=== PATIENT | female | born 1990 | race African-American/Black ===

== ENCOUNTER 2016-05-03 06:38 | Emergency (ER) | payer OTHER ==
[2016-05-03] MEDS ORDERED: AMOXICILLIN 500 MG CAP As Ordered ONE (07:11)
[2016-05-03] MEDS ORDERED: predniSONE 20 MG TAB As Ordered ONE (07:12)
--- NOTE | 2016-05-03 07:23 | EDDOCDS ---
Nurse's Notes [facility] Name: Dasia Soler Age: 26 yrs Sex: Female : 1990 Arrival Date: 05/03/2016 Time: 06:38 Bed Triage 1 Private MD: Diagnosis: Streptococcal pharyngitis Presentation: 05/03 06:47 Presenting complaint: Patient states: sore throat and right ear ache. Reports pain with nn1 swallowing. States symptoms started , reports fever at that time. Reports intermittent fever since. Denies medication this AM. Risk factors: Stridor is not present. Drooling is not present. Shortness of breath is not present. Cellulitis is not present. Adult Sepsis Screening: The patient does not have new or worsening altered mentation. Patient's respiratory rate is less than 22. Systolic blood pressure is greater than 100. Patient has a qSOFA score of 0- Negative Sepsis Screen. Suicide/Homicide risk assessment- the patient denies having any suicidal and/or homicidal ideations and does not present with any other emotional, behavioral or mental health complaints. Status: The patient is a dependent. Transition of care: patient was not received from another setting of care. 06:47 Acuity: HAYLIE Level 4 nn1 06:47 Method Of Arrival: Walkin/Carried/Asstd nn1 Triage Assessment: 06:52 General: Appears uncomfortable. Pain: Location: throat Pain currently is 9 out of 10 on nn1 a pain scale. HIV screening NA for this visit Offered previously. The patient is triaged at the bedside. See Assessment in Nurses Notes section of ED record. EENT: Throat is reddened has enlarged tonsils on right with gag reflex present. Respiratory: Airway is patent Respiratory effort is even, unlabored, Respiratory pattern is regular, symmetrical. Derm: Skin is pink, warm & dry. 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 none - PMHx: none; - PSHx: Laparoscopy; - Social history: Smoking status: Patient states was never smoker of tobacco. No barriers to communication noted, The patient speaks fluent Maori, Speaks appropriately for age. - : The pt / caregiver states he / she is not on anticoagulants. Home medication list is obtained from the patient. - Exposure Risk Screening:: None identified. Screenin:18 Screening information is obtained from the patient. Fall risk: No risks identified. jjr Assistance ADL's: requires no assistance with activities of daily living. Abuse/DV Screen: The patient / caregiver reports he/she is: not in a situation that causes fear, pain or injury. Nutritional screening: No deficits noted. Advance Directives: There is no active DNR order. home support is adequate. Assessment: 07:16 General: Appears in no apparent distress, well nourished, well groomed, Behavior is jjr appropriate for age. General: clearing own secretions without difficulty, took pill form of prescriptions without difficulty but requested liquid form for duration of treatment. EENT: Reports pain when swallowing. Respiratory: Airway is patent Respiratory effort is even, unlabored, Respiratory pattern is regular. Derm: No deficits noted. Vital Signs: 06:50 BP 121 / 77; Pulse 98; Resp 18; Temp 99.9(O); Pulse Ox 98% on R/A; Weight 74.84 kg; nn1 Height 5 ft. 1 in. (154.94 cm); Pain 9/10; 06:50 Body Mass Index 31.18 (74.84 kg, 154.94 cm) nn1 Vitals: 06:50 Log In Time: May 03, 2016 at 06:38. nn1 07:04 Strep Screen is obtained and tested: Positive. nn1 ED Course: 06:39 Patient visited by Zohaib Quintana Reg. pm4 06:39 Patient moved to Waiting pm4 06:49 Triage Initiated nn1 06:53 Patient moved to Triage 1 nn1 06:55 Clinton Sotelo PA-C is PHCP. cc10 06:55 Eloy Mendoza DO is Attending Physician. cc10 07:08 TRACE Sorto is Referral Physician. cc10 07:13 Patient visited by Clinton Sotelo PA-C. cc10 07:13 Patient visited by Clinton Sotelo PA-C. cc10 07:19 No IV's were initiated during this patient's visit. No procedures done that require jjr assistance. 07:22 The patient / caregiver is instructed regarding the plan of care and ED course. jjr Administered Medications: 07:16 Drug: predniSONE 20 mg [prednisone 20 mg tablet (1 tabs)] Route: PO; jjr 07:16 Drug: Amoxicillin 500 mg [amoxicillin 500 mg capsule (1 caps)] Route: PO; jjr Order Results: There are currently no results for this order. Outcome: 07:08 Discharge ordered by Provider. cc10 07:21 Discharge Assessment: patient administered narcotics - no. The following High Risk jjr Discharge criteria are identified: None. Discharged to home ambulatory, with significant other. Condition: stable. Discharge instructions given to patient, Instructed on discharge instructions, follow up and referral plans. medication usage, Demonstrated understanding of instructions, medications, Prescriptions given X 2. No special radiology studies were completed. Property sent home with patient. 07:22 Patient left the ED. jjr Signatures: Lisa Mcnair, RN RN Clinton Maier, PA-C PA-C cc10 Leda El RN RN nn1 Zohaib Quintana, Reg Reg pm4 MTDD
--- NOTE | 2016-05-03 07:23 | EDDOCDS ---
Physician Documentation [facility] Name: Dasia Soler Age: 26 yrs Sex: Female : 1990 Arrival Date: 05/03/2016 Time: 06:38 Bed Triage 1 Private MD: Disposition: 05/03/16 07:08 Discharged to Home/Self Care. Impression: Streptococcal pharyngitis. - Condition is Stable. - Discharge Instructions: Sore Throat. - Prescriptions for Amoxicillin 400 mg/5 mL Oral Suspension for Reconstitution - take 10.9 milliliter by ORAL route every 12 hours for 10 days MAX dose = 1750mg/day; 220 milliliter. prednisolone 15 mg/5 mL Oral Solution - take 10 milliliter by ORAL route once daily for 3 days Take with food.; 30 milliliter. - Medication Reconciliation, Local Pharmacy Hours form. - Follow up: TRACE Sorto; When: Call to arrange an appointment; Reason: Wound/Symptom Recheck, Recheck today's complaints, Worsening of conditions, Continuance of care. - Problem is an ongoing problem. - Symptoms are unchanged. - Notes: May take tylenol as needed for pain. Historical: - Allergies: No known drug Allergies; - Home Meds: 1. none - PMHx: none; - PSHx: Laparoscopy; - Social history: Smoking status: Patient states was never smoker of tobacco. No barriers to communication noted, The patient speaks fluent Upper Sorbian, Speaks appropriately for age. - : The pt / caregiver states he / she is not on anticoagulants. Home medication list is obtained from the patient. - Exposure Risk Screening:: None identified. 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 1 in. (154.94 cm); Pain 9/10; 06:50 Body Mass Index 31.18 (74.84 kg, 154.94 cm) nn1 MDM: 06:56 Strep Screen, Nursing ordered. cc10 07:08 predniSONE 20 mg PO once; administer with food or milk ordered. cc10 07:08 Amoxicillin 500 mg PO once ordered. cc10 Administered Medications: 07:16 Drug: predniSONE 20 mg [prednisone 20 mg tablet (1 tabs)] Route: PO; arben 07:16 Drug: Amoxicillin 500 mg [amoxicillin 500 mg capsule (1 caps)] Route: PO; jjr Signatures: Lisa Mcnair RN RN jjr Clinton Sotelo PA-C PA-C cc10 Leda El RN RN nn1 MTDD
--- NOTE | 2016-05-05 08:23 | EDDOCDS ---
Physician Documentation [facility] Name: Dasia Soler Age: 26 yrs Sex: Female : 1990 Arrival Date: 05/03/2016 Time: 06:38 Bed Triage 1 Private MD: Disposition: 05/03/16 07:08 Discharged to Home/Self Care. Impression: Streptococcal pharyngitis. - Condition is Stable. - Discharge Instructions: Sore Throat. - Prescriptions for Amoxicillin 400 mg/5 mL Oral Suspension for Reconstitution - take 10.9 milliliter by ORAL route every 12 hours for 10 days MAX dose = 1750mg/day; 220 milliliter. prednisolone 15 mg/5 mL Oral Solution - take 10 milliliter by ORAL route once daily for 3 days Take with food.; 30 milliliter. - Medication Reconciliation, Local Pharmacy Hours form. - Follow up: TRACE Sorto; When: Call to arrange an appointment; Reason: Wound/Symptom Recheck, Recheck today's complaints, Worsening of conditions, Continuance of care. - Problem is an ongoing problem. - Symptoms are unchanged. - Notes: May take tylenol as needed for pain. Historical: - Allergies: No known drug Allergies; - Home Meds: 1. none - PMHx: none; - PSHx: Laparoscopy; - Social history: Smoking status: Patient states was never smoker of tobacco. No barriers to communication noted, The patient speaks fluent Spanish, Speaks appropriately for age. - : The pt / caregiver states he / she is not on anticoagulants. Home medication list is obtained from the patient. - Exposure Risk Screening:: None identified. 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 1 in. (154.94 cm); Pain 9/10; 06:50 Body Mass Index 31.18 (74.84 kg, 154.94 cm) nn1 MDM: 06:56 Strep Screen, Nursing ordered. cc10 07:08 predniSONE 20 mg PO once; administer with food or milk ordered. cc10 07:08 Amoxicillin 500 mg PO once ordered. cc10 07:22 Financial registration complete. hs2 07:24 [facility] Payment Agreement was scanned into [employer] and attached to record. hs2 08:42 T-Sheet-- Draft Copy was scanned into [employer] and attached to record. se Administered Medications: 07:16 Drug: predniSONE 20 mg [prednisone 20 mg tablet (1 tabs)] Route: PO; jjr 07:16 Drug: Amoxicillin 500 mg [amoxicillin 500 mg capsule (1 caps)] Route: PO; jjr Signatures: Lisa Mcnair, RN RN jjr Clinton Sotelo, PA-C PA-C cc10 Leda El RN RN nn1 Betzy Reed, Reg Reg hs2 Chelsea Winkler [facility] The chart was reviewed and I authenticate all verbal orders and agree with the evaluation and treatment provided.Attachments: 07:24 [facility] Payment Agreement hs2 08:42 T-Sheet-- Draft Copy [facility] Chart Complete MTDD
--- NOTE | 2016-05-05 08:23 | EDDOCDS ---
Physician Documentation [facility] Name: Dasia Soler Age: 26 yrs Sex: Female : 1990 Arrival Date: 05/03/2016 Time: 06:38 Bed Triage 1 Private MD: Disposition: 05/03/16 07:08 Discharged to Home/Self Care. Impression: Streptococcal pharyngitis. - Condition is Stable. - Discharge Instructions: Sore Throat. - Prescriptions for Amoxicillin 400 mg/5 mL Oral Suspension for Reconstitution - take 10.9 milliliter by ORAL route every 12 hours for 10 days MAX dose = 1750mg/day; 220 milliliter. prednisolone 15 mg/5 mL Oral Solution - take 10 milliliter by ORAL route once daily for 3 days Take with food.; 30 milliliter. - Medication Reconciliation, Local Pharmacy Hours form. - Follow up: TRACE Sorto; When: Call to arrange an appointment; Reason: Wound/Symptom Recheck, Recheck today's complaints, Worsening of conditions, Continuance of care. - Problem is an ongoing problem. - Symptoms are unchanged. - Notes: May take tylenol as needed for pain. Historical: - Allergies: No known drug Allergies; - Home Meds: 1. none - PMHx: none; - PSHx: Laparoscopy; - Social history: Smoking status: Patient states was never smoker of tobacco. No barriers to communication noted, The patient speaks fluent Turkmen, Speaks appropriately for age. - : The pt / caregiver states he / she is not on anticoagulants. Home medication list is obtained from the patient. - Exposure Risk Screening:: None identified. 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 1 in. (154.94 cm); Pain 9/10; 06:50 Body Mass Index 31.18 (74.84 kg, 154.94 cm) nn1 MDM: 06:56 Strep Screen, Nursing ordered. cc10 07:08 predniSONE 20 mg PO once; administer with food or milk ordered. cc10 07:08 Amoxicillin 500 mg PO once ordered. cc10 07:22 Financial registration complete. hs2 07:24 [facility] Payment Agreement was scanned into [employer] and attached to record. hs2 08:42 T-Sheet-- Draft Copy was scanned into [employer] and attached to record. se Administered Medications: 07:16 Drug: predniSONE 20 mg [prednisone 20 mg tablet (1 tabs)] Route: PO; jjr 07:16 Drug: Amoxicillin 500 mg [amoxicillin 500 mg capsule (1 caps)] Route: PO; jjr Signatures: Lisa Mcnair, RN RN jjr Clinton Sotelo, PA-C PA-C cc10 Leda El RN RN nn1 Betzy Reed, Reg Reg hs2 Chelsea Winkler [facility] The chart was reviewed and I authenticate all verbal orders and agree with the evaluation and treatment provided.Attachments: 07:24 [facility] Payment Agreement hs2 08:42 T-Sheet-- Draft Copy [facility] Chart Complete MTDD
--- NOTE | 2016-05-05 08:23 | EDDOCDS ---
Nurse's Notes [facility] Name: Dasia Soler Age: 26 yrs Sex: Female : 1990 Arrival Date: 05/03/2016 Time: 06:38 Bed Triage 1 Private MD: Diagnosis: Streptococcal pharyngitis Presentation: 05/03 06:47 Presenting complaint: Patient states: sore throat and right ear ache. Reports pain with nn1 swallowing. States symptoms started , reports fever at that time. Reports intermittent fever since. Denies medication this AM. Risk factors: Stridor is not present. Drooling is not present. Shortness of breath is not present. Cellulitis is not present. Adult Sepsis Screening: The patient does not have new or worsening altered mentation. Patient's respiratory rate is less than 22. Systolic blood pressure is greater than 100. Patient has a qSOFA score of 0- Negative Sepsis Screen. Suicide/Homicide risk assessment- the patient denies having any suicidal and/or homicidal ideations and does not present with any other emotional, behavioral or mental health complaints. Status: The patient is a dependent. Transition of care: patient was not received from another setting of care. 06:47 Acuity: HAYLIE Level 4 nn1 06:47 Method Of Arrival: Walkin/Carried/Asstd nn1 Triage Assessment: 06:52 General: Appears uncomfortable. Pain: Location: throat Pain currently is 9 out of 10 on nn1 a pain scale. HIV screening NA for this visit Offered previously. The patient is triaged at the bedside. See Assessment in Nurses Notes section of ED record. EENT: Throat is reddened has enlarged tonsils on right with gag reflex present. Respiratory: Airway is patent Respiratory effort is even, unlabored, Respiratory pattern is regular, symmetrical. Derm: Skin is pink, warm & dry. 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 none - PMHx: none; - PSHx: Laparoscopy; - Social history: Smoking status: Patient states was never smoker of tobacco. No barriers to communication noted, The patient speaks fluent [place], Speaks appropriately for age. - : The pt / caregiver states he / she is not on anticoagulants. Home medication list is obtained from the patient. - Exposure Risk Screening:: None identified. Screenin:18 Screening information is obtained from the patient. Fall risk: No risks identified. jjr Assistance ADL's: requires no assistance with activities of daily living. Abuse/DV Screen: The patient / caregiver reports he/she is: not in a situation that causes fear, pain or injury. Nutritional screening: No deficits noted. Advance Directives: There is no active DNR order. home support is adequate. Assessment: 07:16 General: Appears in no apparent distress, well nourished, well groomed, Behavior is jjr appropriate for age. General: clearing own secretions without difficulty, took pill form of prescriptions without difficulty but requested liquid form for duration of treatment. EENT: Reports pain when swallowing. Respiratory: Airway is patent Respiratory effort is even, unlabored, Respiratory pattern is regular. Derm: No deficits noted. Vital Signs: 06:50 BP 121 / 77; Pulse 98; Resp 18; Temp 99.9(O); Pulse Ox 98% on R/A; Weight 74.84 kg; nn1 Height 5 ft. 1 in. (154.94 cm); Pain 9/10; 06:50 Body Mass Index 31.18 (74.84 kg, 154.94 cm) nn1 Vitals: 06:50 Log In Time: May 03, 2016 at 06:38. nn1 07:04 Strep Screen is obtained and tested: Positive. nn1 ED Course: 06:39 Patient visited by Zohaib Quintana Reg. pm4 06:39 Patient moved to Waiting pm4 06:49 Triage Initiated nn1 06:53 Patient moved to Triage 1 nn1 06:55 Clinton Sotelo PA-C is PHCP. cc10 06:55 Eloy Mendoza DO is Attending Physician. cc10 07:08 TRACE Sorto is Referral Physician. cc10 07:13 Patient visited by Clinton Sotelo PA-C. cc10 07:13 Patient visited by Clinton Sotelo PA-C. cc10 07:19 No IV's were initiated during this patient's visit. No procedures done that require jjr assistance. 07:22 The patient / caregiver is instructed regarding the plan of care and ED course. jjr 07:24 [facility] Payment Agreement was scanned into [employer] and attached to record. hs2 08:42 T-Sheet-- Draft Copy was scanned into [employer] and attached to record. [facility] Administered Medications: 07:16 Drug: predniSONE 20 mg [prednisone 20 mg tablet (1 tabs)] Route: PO; jjr 07:16 Drug: Amoxicillin 500 mg [amoxicillin 500 mg capsule (1 caps)] Route: PO; jjr Order Results: There are currently no results for this order. Outcome: 07:08 Discharge ordered by Provider. cc10 07:21 Discharge Assessment: patient administered narcotics - no. The following High Risk jjr Discharge criteria are identified: None. Discharged to home ambulatory, with significant other. Condition: stable. Discharge instructions given to patient, Instructed on discharge instructions, follow up and referral plans. medication usage, Demonstrated understanding of instructions, medications, Prescriptions given X 2. No special radiology studies were completed. Property sent home with patient. 07:22 Patient left the ED. jjr Signatures: Lisa Mcnair RN RN jjr Clinton Sotelo, PATianaC PA-C cc10 Leda ElRN RN nn1 Betzy Reed, Reg Reg hs2 Chelsea Winkler Paul, Reg Reg pm4 Chart Complete MTDD
== END 2016-05-03 07:22 | disposition home or self-care (01) ==
LOC: M ED 06:38
DX: J02.0 Streptococcal pharyngitis (principal)

== ENCOUNTER 2016-09-05 19:27 | Emergency (ER) | payer OTHER ==
[~2016-09-05] VITALS: Ht 154.9 cm; Wt 77.1 kg
[2016-09-05] MEDS ORDERED: MAGIC MOUTHWASH SUSPENSION BTL SS ONE (21:00)
[2016-09-05 21:09] VITALS: BP 109/67
== END 2016-09-05 21:26 | disposition home or self-care (01) ==
LOC: M ED 20:29
DX: J02.9 Acute pharyngitis, unspecified (principal)

== ENCOUNTER → 2016-12-09 | Outpatient (REF) | payer OTHER | LOC: M SFHCLERA 18:13 | PROVIDERS: ATTEND Nurse Practitioner Family | DX: N89.8 Other specified noninflammatory disorders of vagina (principal); R10.9 Unspecified abdominal pain ==

== ENCOUNTER → 2017-03-11 | Outpatient (REF) | payer OTHER | LOC: M LAB REF 17:24 | PROVIDERS: ATTEND Physician Assistant Medical | DX: Z12.4 Encounter for screening for malignant neoplasm of cervix (principal) ==

== ENCOUNTER 2017-07-17 22:46 | Emergency (ER) | payer OTHER ==
[2017-07-17] MEDS: NS 1,000 ML IV (23:45)
[2017-07-18 00:43] LABS: BASO % 0.5 % (0.0-1.0); EOS # 0.1 10^3/uL (0.0-0.50); EOS % 1.8 % (0.0-3.0); HEMATOCRIT 35.8 % (36.0-47.0); HEMOGLOBIN 11.6 g/dl (12.0-15.5); IMMATURE GRANULOCYTE % 0.3 % (0-3.0); LYMPH # 2.6 10^3/uL (1.5-6.5); LYMPH % 39.4 % (24.0-44.0); MEAN CORPUSCULAR HEMOGLOBIN 28.7 pg (27.0-33.0); MEAN CORPUSCULAR HGB CONC 32.4 g/dl (32.0-36.5); MEAN CORPUSCULAR VOLUME 88.6 fl (80.0-96.0); MONO # 0.5 10^3/uL (0.0-0.8); MONO % 8.1 % (0.0-5.0); NEUTROPHILS # 3.3 10^3/uL (1.8-7.7); NEUTROPHILS % 49.9 % (36.0-66.0); PLATELET COUNT, AUTOMATED 207 10^3/uL (150-450); RED BLOOD COUNT 4.04 10^6/uL (4.00-5.40); RED CELL DISTRIBUTION WIDTH 14.1 % (11.5-14.5); WHITE BLOOD COUNT 6.5 10^3/uL (4.0-10.0)
[2017-07-18 01:06] LABS: KETONE, URINE AUTO RFX NEGATIVE (NEGATIVE); LEUKOCYTE ESTERASE UR AUTO RFX NEGATIVE (NEGATIVE); NITRITE, URINE AUTO RFX NEGATIVE (NEGATIVE); RBC, URINE AUTO RFX 3 /HPF (0-3); SPECIFIC GRAVITY UR AUTO RFX 1.026 (1.002-1.035); SQUAM EPITHELIAL CELL UR AURFX 1 /HPF (0-6); WBC, URINE AUTO RFX 0 /HPF (0-3)
[2017-07-18 01:22] LABS: CONTROL LINE UCG INT CTR LINE PRESENT; URINE PREG TEST NEGATIVE (NEGATIVE)
[2017-07-18 01:58] LABS: CHLAMYDIA DNA AMPLIFICATION NEGATIVE (NEGATIVE); GC DNA AMPLIFICATION NEGATIVE (NEGATIVE)
== END 2017-07-18 01:37 | disposition home or self-care (01) ==
LOC: M ED 07-18 01:37
DX: N76.0 Acute vaginitis (principal)
CPT/HCPCS: 76856

== ENCOUNTER → 2017-07-28 | Outpatient (CLI) | payer OTHER ==
[2017-07-28 18:15] LABS: TOTAL 25(OH) VITAMIN D 15.2 NG/ML (30.0-100.0)
[2017-07-28 18:28] LABS: FERRITIN 127 NG/ML (8-252); IRON (FE) 68 UG/DL (50-170); PERCENT SATURATION 24.5 % (13.2-45.0); THYROID STIMULATING HORMONE 0.635 uIU/ML (0.358-3.740); TOTAL IRON BINDING CAPACITY 277 UG/DL (250-450)
== END ==
LOC: M SMT 14:19
DX: D64.9 Anemia, unspecified (principal); Z13.29 Encounter for screening for other suspected endocrine disorder